=== PATIENT | female | born 1995 | race Caucasian/White ===

== ENCOUNTER → 2016-09-08 | Outpatient (CLI) | payer OTHER | LOC: M LAB 13:23 | PROVIDERS: ATTEND Advanced Practice Midwife | DX: Z34.02 Encounter for supervision of normal first pregnancy, second trimester (principal) ==

== ENCOUNTER → 2016-09-28 | Outpatient (REF) | payer OTHER ==
[2016-09-28 18:17] LABS: MEAN CORPUSCULAR HEMOGLOBIN 28.6 pg (27.0-33.0); MEAN CORPUSCULAR HGB CONC 32.9 g/dl (32.0-36.5); MEAN CORPUSCULAR VOLUME 87.1 fl (80.0-96.0); RED CELL DISTRIBUTION WIDTH 13.3 % (11.5-14.5); WHITE BLOOD COUNT 9.4 K/mm3 (4.0-10.0)
== END ==
LOC: M LAB REF 16:35
PROVIDERS: ATTEND Advanced Practice Midwife
DX: Z34.83 Encounter for supervision of other normal pregnancy, third trimester (principal)

== ENCOUNTER → 2016-10-12 | Outpatient (REF) | payer OTHER | LOC: M LAB REF 16:25 | PROVIDERS: ATTEND Advanced Practice Midwife | DX: Z34.83 Encounter for supervision of other normal pregnancy, third trimester (principal) ==

== ENCOUNTER 2016-11-10 00:05 | Inpatient (IN) | payer OTHER ==
[~2016-11-10] VITALS: Ht 157.5 cm; Wt 79.0 kg
[2016-11-10] VITALS (35 sets, daily range): BP systolic 96–142; BP diastolic 55–86
[2016-11-10] MEDS ORDERED: PRENTAB9 PO (00:54)
[2016-11-10] MEDS ORDERED: LR 1,000 ML IV ONE (01:00)
[2016-11-10] MEDS ORDERED: LR 1,000 ML IV SCH (01:00)
[2016-11-10 01:46] LABS: MEAN CORPUSCULAR HEMOGLOBIN 27.8 pg (27.0-33.0); MEAN CORPUSCULAR HGB CONC 33.5 g/dl (32.0-36.5); MEAN CORPUSCULAR VOLUME 82.9 fl (80.0-96.0); RED CELL DISTRIBUTION WIDTH 14.7 % (11.5-14.5); WHITE BLOOD COUNT 10.6 K/mm3 (4.0-10.0)
[2016-11-10] MEDS ORDERED: OXYTOCIN DRIP 30 UNITS in APPROPRIATE DILUENT 1 EA IV SCH ×2 (08:00→13:50)
--- NOTE | 2016-11-10 09:01 | HPE ---
DATE OF ADMISSION: 11/10/2016 Dania is a 21-year-old female, 1, para 0 with an expected date of confinement (EDC) of 11/10/2016 and estimated gestational age (EGA) of 40 weeks gestation who presented to labor and delivery with complaints of contractions every 4-5 minutes. Upon evaluation in labor and delivery, she was found to be in early labor. At this point, a decision was made for admission. Her record was reviewed which was essentially unremarkable. LABS: Blood type is A positive, rubella immune, hepatitis negative, HIV negative. The gonorrhea was negative, the chlamydia was positive. She was treated and had a test of cure was negative. Declined genetic screening. Her GBS is negative. MEDICAL HISTORY: Significant for migraine headaches. PAST SURGICAL HISTORY: Tonsillectomy. SOCIAL HISTORY: Denies any alcohol or drug use. Not a smoker. FAMILY HISTORY: Significant for diabetes, hypercholesterolemia, hypertension and thyroid disease. MEDICATIONS: Multivitamin. ALLERGIES: No known drug allergies. PHYSICAL EXAMINATION ON ADMISSION: HEENT: Grossly within normal limits. Abdomen: Soft, nontender, nondistended. Extremities: No clubbing, cyanosis or edema. Vaginal Exam: 4 cm, 80% -3, fetus in vertex position. heart rate tracing reviewed, Category one tracing. ASSESSMENT: Intrauterine at 40 weeks gestation in early labor. PLAN: Admit to labor and delivery. Routine labs sent. Pain management discussed. The patient opted for an epidural. Will continue to monitor. Anticipate delivery.
[2016-11-10] MEDS ORDERED: FENTANYL 2MCG/ML ROPIVACAINE 0.2% IN 0.9% NACL 200ML IVBAG As Ordered ONE (09:03)
[2016-11-10] MEDS ORDERED: ONDANSETRON 4MG/2ML VIAL (J2405) IV PRN (10:15)
[2016-11-10] MEDS ORDERED: diphenhydrAMINE INJ 50MG/ML VIAL (J1200) IV PRN (10:15)
[2016-11-10] MEDS ORDERED: ePHEDrine SULFATE 25 MG/5 ML(5MG/ML) SYRINGE IV PRN (10:15)
[2016-11-10] MEDS ORDERED: EPIDURAL COMMENT XX SCH (10:15)
[2016-11-10] MEDS ORDERED: NALOXONE INJ 0.4 MG/1 ML VIAL (J2310) IV PRN (10:15)
[2016-11-10] MEDS ORDERED: LACTATED RINGER'S 1000 ML IV PRN (10:15)
[2016-11-10] MEDS ORDERED: FENTANYL/ROPIVACAINE/NACL BAG 200 ML EPIDURAL SCH (10:15)
[2016-11-10] MEDS ORDERED: EPIDURAL/PCA KEYS XX PRN (10:15)
[2016-11-10] MEDS ORDERED: REFRIGERATOR IV KEYS XX PRN (10:15)
[2016-11-10] MEDS ORDERED: BICITRA 30ML SOLN UDC PO ONE (12:15)
--- NOTE | 2016-11-10 13:56 | DNPDOC ---
[facility] Delivery Note Delivery Note Dania is a 21-year-old female now G 1 P 1001 at 40 weeks' gestation who presented to labor and delivery in active labor. She obtained an epidural for pain management. Her labor was augmented with AROM and Pitocin. A total of 27 cc of Pitocin was infused. She progressed to fully dilated at 1231. Patient pushed to a spontaneous vaginal delivery at 1324 to a living female in the EKATERINA position with restitution to ROT. No nuchal cord. Shoulders delivered with ease and the corpus immediately followed. Baby placed on maternal abdomen active and crying. Cord clamped 2 and cut by father of the baby after pulsation ceased. Spontaneous delivery of intact placenta with a three-vessel cord by Clark mechanism at 1332. Uterine hemostasis achieved by rapid infusion of IV Pitocin and uterine fundal massage. Perineum and vagina inspected and found to intact with a periurethral abrasion. EBL 200. 's 9/10. Weight 7 lbs. 12 oz. , 08/14/2005 grams. [place]'s name is Sal and mom is bottlefeeding. Both mother and baby are stable. JACKELINE MORENO CNM Nov 10, 2016 13:56
[2016-11-10] MEDS ORDERED: METHYLERGONOVINE MALEATE 0.2 MG TAB PO PRN (14:00)
[2016-11-10] MEDS ORDERED: DOCUSATE SODIUM 100 MG CAP PO PRN (14:00)
[2016-11-10] MEDS ORDERED: DIBUCAINE 1% OINTMENT 30GM TOP PRN (14:00)
[2016-11-10] MEDS ORDERED: ACETAMINOPHEN 500 MG TAB PO PRN (14:00)
[2016-11-10] MEDS ORDERED: RHOGAM 300 MCG (1500 IU) INJ (J2790) IM SCH (14:00)
[2016-11-10] MEDS ORDERED: MEASLES,MUMPS,RUBELLA VACCINE INJ (MMR-II) (90707) SC SCH (14:00)
[2016-11-11 06:05] VITALS: BP 132/83
[2016-11-11] MEDS: PRENATAL VITAMIN TAB PO SCH (08:36)
[2016-11-11] MEDS: IBUPROFEN 800 MG TAB PO PRN ×2 (08:36→21:47)
[2016-11-11 18:30] VITALS: BP 118/73
[2016-11-12 05:27] VITALS: BP 128/70
[2016-11-12] MEDS: PRENATAL VITAMIN TAB PO SCH (08:11)
[2016-11-12] MEDS: IBUPROFEN 800 MG TAB PO PRN (08:12)
[2016-11-12] MEDS ORDERED: TYLE325T5 PO (09:18)
[2016-11-12] MEDS ORDERED: MOTR200T44 PO (09:19)
== END 2016-11-12 11:00 | disposition home or self-care (01) | DRG 560 ==
LOC: M LDO 00:05 → M LDI 01:01 → M OBS 15:27
PROVIDERS: ADMIT Obstetrics & Gynecology; ATTEND Obstetrics & Gynecology
PROC: 10E0XZZ Delivery of Products of Conception, External Approach (ICD-10-PCS; principal; 2016-11-10)
PROC: 10907ZC Drainage of Amniotic Fluid, Therapeutic from Products of Conception, Via Natural or Artificial Opening (ICD-10-PCS; 2016-11-10)
DX: O48.0 Post-term pregnancy (principal); Z37.0 Single live birth; Z3A.40 40 weeks gestation of pregnancy